=== PATIENT | female | born 1985 | race American Indian/Alaskan Native ===

== ENCOUNTER 2016-08-26 19:00 | Emergency (ER) | payer OTHER ==
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
[2016-08-26] MEDS ORDERED: BOOSTRIX IM ONE (23:47)
[2016-08-26 23:55] VITALS: BP 132/79
== END 2016-08-26 23:55 | disposition home or self-care (01) ==
LOC: ED 19:00
DX: T24.101A Burn of first degree of unspecified site of right lower limb, except ankle and foot, initial encounter (principal); I10 Essential (primary) hypertension; E78.00 Pure hypercholesterolemia, unspecified; X17.XXXA Contact with hot engines, machinery and tools, initial encounter; Y93.89 Activity, other specified; Y99.9 Unspecified external cause status; Y92.89 Other specified places as the place of occurrence of the external cause